=== PATIENT | female | born 1975 | race Two or more races ===

== ENCOUNTER 2023-10-23 05:43 | Day surgery (SDC) | payer OTHER ==
[~2023-10-23 05:43] MED LIST: LEVOTHYROXINE25 MCG PO; TOPAMAX50 MG PO
[2023-10-23] MEDS ORDERED: METRONIDAZOLE/SODIUM CHLORIDE 500 MG/100 ML PIGGYBACK IV ONE (09:08)
[2023-10-23] MEDS ORDERED: LIDOCAINE HCL 1%/EPINEPHRINE 20ML VIAL IJ ONE (09:26)
[2023-10-23] MEDS ORDERED: DIBUCAINE 30 GM TUBE ONE (09:26)
[2023-10-23] MEDS ORDERED: HEMOSTATIC MATRIX 1 KIT KIT TOP ONE (09:26)
[2023-10-23] MEDS ORDERED: CHLORHEXIDINE GLUCONATE 120 ML BOTTLE TOP ONE (09:26)
[2023-10-23] MEDS ORDERED: METHYLPREDNISOLONE SOD SUCC 125 MG VIAL ONE (09:50)
[2023-10-23] MEDS ORDERED: DIPHENHYDRAMINE HCL 50 MG/ML VIAL 1ML ONE (09:50)
[2023-10-23] MEDS ORDERED: levoFLOXacin IN DEXTROSE 5 % 5 MG/ML PIGGYBAG IV ONE (12:00)
[2023-10-23] MEDS ORDERED: BENADRYL25 MG PO (12:19)
[2023-10-23] MEDS ORDERED: TRAMADOL HCL50 MG PO (12:20)
[2023-10-23] MEDS ORDERED: NEURONTIN300 MG PO (12:20)
== END 2023-10-23 14:25 | disposition home or self-care (01) ==
LOC: CIR.AMB 05:43
PROVIDERS: ATTEND Surgery
DX: K60.1 Chronic anal fissure (principal); K59.4 Anal spasm; K62.5 Hemorrhage of anus and rectum; K59.09 Other constipation; K29.90 Gastroduodenitis, unspecified, without bleeding; Z88.6 Allergy status to analgesic agent; Z88.1 Allergy status to other antibiotic agents; Z88.0 Allergy status to penicillin; E03.9 Hypothyroidism, unspecified